=== PATIENT | female | born 1960 | race Caucasian/White ===

== ENCOUNTER 2016-09-11 17:22 | Emergency (ER) | payer SELFPAY ==
[~2016-09-11 17:22] MED LIST: ALBUTEROL SULF8.5 G1 IH; ALBUTEROL0.63 MG/1 IH; ALBUTEROL0.83 MG/ML INH; ALEVE220 M1 PO; ALEVE220 M4 PO; ASPIRIN325 M3 PO; ATIVAN2 M1 PO; BYSTOLIC2.5 M1 PO; CULTURELLE1 CA1 PO; DIAZIDE; DOXYCYCLINE HY100 M3 PO; DYAZIDE 37.5-21 EACH PO; EFFER-K 10 MEQ10 MEQ; FLOVENT HFA12 GM IH; FLUDROCORTISON0.1 M1 PO; GLIPIZIDE PO; GLIPIZIDE10 M1 PO; GLIPIZIDE5 MG PO; GLUCOPHAGE XR500 M1 PO; GLUCOPHAGE500 M3 PO; GLUCOPHAGE500 MG; GLUCOPHAGE500 MG PO; GLUCOTROL10 MG; HYDROCODONE/APA1 TAB; IBUPROFEN200 M2 PO; LANTUS100 U/ML; LEVEMIR100 UNITS/ SC; NORCO 10/325 TA1 TAB PO; NORCO 10/3251 TAB PO; NORCO 5-325 TA1 EACH PO; NORCO 5/325 TAB1 TAB PO; NOVOLOG100 UNITS/ SC; OXYCONTIN10 M2 PO; OXYCONTIN20 M2 PO; OXYCONTIN20 MG; PAXIL20 M1 PO; PAXIL40 MG PO; PEPCID20 MG PO; PHENERGAN25 MG/SUPP RC; POTASSIUM CHLO10 ME2 PO; POTASSIUM2.5 MEQ; PREDNISONE20 M1 PO; PREDNISONE20 MG PO; PREVACID30 MG; PRILOSEC20 M1 PO; PROAIR HFA8.5 GM INH; PROTONIX40 M2 PO; SOTALOL80 M1 PO; SYMBICORT 160-1 PUFF INH; TENORMIN50 M1 PO; THEOPHYLLINE PO; THEOPHYLLINE300 MG PO; TOPAMAX100 MG; TRAMADOL HCL50 M2 PO; TRIAMTERENE-HC1 EAC3 PO; TYLENOL EXTRA500 M1 PO; VIBRAMYCIN100 M1 PO; VIBRAMYCIN100 MG PO; ZANTAC150 M1 PO; ZANTAC150 MG; ZESTRIL2.5 M3 PO; ZITHROMAX250 M1 PO; ZITHROMAX250 MG PO; ZOFRAN ODT4 MG/UDTAB PO; [UNRECOGNIZED DRUG - OTHER] PO; [UNRECOGNIZED DRUG - REMARK]
[2016-09-11 17:56] LABS: URINE BILIRUBIN SMALL (NEG); URINE BLOOD LARGE (NEG); URINE GLUCOSE (UA) NEGATIVE (NEG); URINE KETONE SMALL (NEG); URINE LEUKOCYTE ESTERASE POSITIVE (NEG); URINE NITRITE POSITIVE (NEG); URINE PROTEIN LARGE (NEG)
[2016-09-11 17:58] LABS: URINE APPEARANCE CLOUDY; URINE COLOR BROWN
[2016-09-11] MEDS ORDERED: ALEVE220 M4 PO (18:00)
[2016-09-11] MEDS ORDERED: TYLENOL EXTRA500 M1 PO (18:00)
[2016-09-11] MEDS ORDERED: REQUIP0.5 M1 PO (18:01)
[2016-09-11] MEDS ORDERED: ASPIRIN325 M3 PO (18:01)
[2016-09-11 18:05] LABS: URINE AMORPHOUS 3+; URINE BACTERIA 2+; URINE RBC FULL FIELD /[HPF] (0-5); URINE WBC FULL FIELD /[HPF] (0-5)
[2016-09-11] MEDS ORDERED: PYRIDIUM100 M2 PO (18:21)
[2016-09-11] MEDS ORDERED: MACROBID 100 M100 M1 PO (18:21)
[2016-09-11] MEDS ORDERED: ZOFRAN4 M2 PO (18:21)
== END 2016-09-11 18:24 ==
LOC: EDMED 17:22
PROVIDERS: Emergency Medicine
DX: N39.0 Urinary tract infection, site not specified (principal); E11.9 Type 2 diabetes mellitus without complications; I10 Essential (primary) hypertension; K21.9 Gastro-esophageal reflux disease without esophagitis; Z79.4 Long term (current) use of insulin; Z88.0 Allergy status to penicillin; Z88.1 Allergy status to other antibiotic agents; Z88.2 Allergy status to sulfonamides; Z88.8 Allergy status to other drugs, medicaments and biological substances; F17.210 Nicotine dependence, cigarettes, uncomplicated

== ENCOUNTER 2016-09-20 13:14 | Emergency (ER) | payer SELFPAY ==
[~2016-09-20 13:14] MED LIST changes: +MACROBID 100 M100 M1 PO; +PYRIDIUM100 M2 PO; +REQUIP0.5 M1 PO; +ZOFRAN4 M2 PO
[2016-09-20] MEDS ORDERED: [UNRECOGNIZED DRUG - CODE] PO (14:48)
[2016-09-20] MEDS ORDERED: LISINOPRIL20 M1 PO (14:48)
[2016-09-20] MEDS ORDERED: HUMULIN R100 UNITS/ SC (14:49)
[2016-09-20] MEDS ORDERED: ZOFRAN ODT4 MG PO (15:57)
[2016-09-20] MEDS ORDERED: NORCO 5-325 TA1 EACH PO (15:57)
[2016-09-20] MEDS ORDERED: KEFLEX500 M4 PO (15:57)
== END 2016-09-20 16:17 ==
LOC: EDMED 13:14
DX: R68.84 Jaw pain (principal); E11.9 Type 2 diabetes mellitus without complications; I48.91 Unspecified atrial fibrillation; F17.200 Nicotine dependence, unspecified, uncomplicated

== ENCOUNTER 2016-10-09 23:09 | Observation (INO) | payer SELFPAY ==
[~2016-10-09 23:09] MED LIST changes: +HUMULIN R100 UNITS/ SC; +KEFLEX500 M4 PO; +LISINOPRIL20 M1 PO; +ZOFRAN ODT4 MG PO; +[UNRECOGNIZED DRUG - CODE] PO
[2016-10-10 00:14] LABS: BASO % 0.9 % (0-2); BASO ABSOLUTE COUNT 0.1 tho/cmm (0.0-0.2); EOS % 7.9 % (0-7); EOSINOPHIL ABSOLUTE COUNT 0.7 tho/cmm (0.0-0.7); HCT-HEMATOCRIT 33.3 % (34.0-49.0); HGB-HEMOGLOBIN 10.3 gm/dl (12.0-15.5); IMMATURE GRANULOCYTES ABSOLUTE 0.04 tho/cmm (0-0.03); IMMATURE GRANULOCYTES PERCENT 0.4 % (0-0.3); LYMPH % 13.4 % (20-45); LYMPH ABSOLUTE COUNT 1.2 tho/cmm (0.8-4.5); MCH (MEAN CORPUSCULAR HGB) 22.3 pg (28.0-32.0); MCHC MEAN CORPUSCULAR HGB CONC 30.9 % (32.0-36.0); MCV (MEAN CELL VOLUME) 72.1 fl (82.0-96.0); MEAN PLATELET VOLUME 10.2 cmc (9.4-12.4); MONO % 7.8 % (0-12); MONOCYTE ABSOLUTE COUNT 0.7 tho/cmm (0.0-1.2); NEUTROPHIL ABSOLUTE COUNT 6.2 tho/cmm (1.6-8.0); NEUTROPHIL-AUTOMATED 6.2 tho/cmm (1.6-8.0); NEUTROPHILS % 69.6 % (40-80); PLATELET COUNT 357 tho/cmm (150-450); RED BLOOD COUNT 4.62 mil/cmm (4.00-5.20); RED CELL DISTRIBUTION WIDTH 21.6 % (12.4-16.4)
[2016-10-10 00:34] LABS: ANION GAP 11 mmol/L (0-20); BLOOD UREA NITROGEN 25 mg/dl (6-24); CALCIUM 8.8 mg/dl (8.5-10.5); CARBON DIOXIDE-VENOUS 23 mmol/L (22-32); CHLORIDE 105 mmol/l (96-110); CREATININE 1.02 mg/dl (0.50-1.10); GLUCOSE 298 mg/dL (70-110); POTASSIUM 4.4 mmol/L (3.7-5.1); SODIUM 135 mmol/L (135-145); eGFR VALUE FOR BLACK 71 mL/Min
[2016-10-10] MEDS ORDERED: THEOPHYLLINE A200 M1 PO (13:48)
== END 2016-10-10 14:05 ==
LOC: EDMED 23:09 → EMR2 10-10 01:56 → CAR1 10-10 02:10
PROVIDERS: Emergency Medicine; ADMIT Internal Medicine Clinical Cardiac Electrophysiology
DX: R07.89 Other chest pain (principal); J45.909 Unspecified asthma, uncomplicated; I48.1 Persistent atrial fibrillation; I10 Essential (primary) hypertension; E78.5 Hyperlipidemia, unspecified; E11.649 Type 2 diabetes mellitus with hypoglycemia without coma; F17.210 Nicotine dependence, cigarettes, uncomplicated; Z79.4 Long term (current) use of insulin; Z79.899 Other long term (current) drug therapy
CPT/HCPCS: A9500; G0378; J2785

== ENCOUNTER 2016-10-13 17:51 | Emergency (ER) | payer SELFPAY ==
[~2016-10-13 17:51] MED LIST changes: +THEOPHYLLINE A200 M1 PO
[2016-10-13] MEDS ORDERED: PAXIL CR25 M1 PO (18:14)
[2016-10-13 19:34] LABS: BASO % 0.7 % (0-2); BASO ABSOLUTE COUNT 0.1 tho/cmm (0.0-0.2); EOS % 7.7 % (0-7); EOSINOPHIL ABSOLUTE COUNT 0.8 tho/cmm (0.0-0.7); HCT-HEMATOCRIT 36.1 % (34.0-49.0); HGB-HEMOGLOBIN 11.1 gm/dl (12.0-15.5); IMMATURE GRANULOCYTES ABSOLUTE 0.03 tho/cmm (0-0.03); IMMATURE GRANULOCYTES PERCENT 0.3 % (0-0.3); LYMPH % 27.5 % (20-45); LYMPH ABSOLUTE COUNT 2.7 tho/cmm (0.8-4.5); MCH (MEAN CORPUSCULAR HGB) 22.3 pg (28.0-32.0); MCHC MEAN CORPUSCULAR HGB CONC 30.7 % (32.0-36.0); MCV (MEAN CELL VOLUME) 72.6 fl (82.0-96.0); MEAN PLATELET VOLUME 10.2 cmc (9.4-12.4); MONO % 6.6 % (0-12); MONOCYTE ABSOLUTE COUNT 0.7 tho/cmm (0.0-1.2); NEUTROPHIL ABSOLUTE COUNT 5.7 tho/cmm (1.6-8.0); NEUTROPHIL-AUTOMATED 5.7 tho/cmm (1.6-8.0); NEUTROPHILS % 57.2 % (40-80); RED BLOOD COUNT 4.97 mil/cmm (4.00-5.20); RED CELL DISTRIBUTION WIDTH 21.6 % (12.4-16.4); WHITE BLOOD COUNT 9.9 tho/cmm (4.0-10.0)
[2016-10-13 19:51] LABS: ANION GAP 11 mmol/L (0-20); BLOOD UREA NITROGEN 24 mg/dl (6-24); CALCIUM 8.8 mg/dl (8.5-10.5); CARBON DIOXIDE-VENOUS 23 mmol/L (22-32); CHLORIDE 107 mmol/l (96-110); CREATININE 0.96 mg/dl (0.50-1.10); GLUCOSE 192 mg/dL (70-110); POTASSIUM 4.7 mmol/L (3.7-5.1); SODIUM 136 mmol/L (135-145); eGFR VALUE FOR BLACK 77 mL/Min
[2016-10-13 19:53] LABS: PLATELET COUNT 322 tho/cmm (150-450)
[2016-10-13] MEDS ORDERED: [UNRECOGNIZED DRUG - CODE] PO (20:05)
[2016-10-13] MEDS ORDERED: ZOFRAN4 M2 PO (20:57)
[2016-10-13] MEDS ORDERED: VIBRAMYCIN100 M1 PO (20:57)
== END 2016-10-13 21:10 ==
LOC: EDMED 17:51
PROVIDERS: Emergency Medicine
DX: J18.9 Pneumonia, unspecified organism (principal); J45.901 Unspecified asthma with (acute) exacerbation; I48.91 Unspecified atrial fibrillation; I10 Essential (primary) hypertension; E11.9 Type 2 diabetes mellitus without complications; F31.9 Bipolar disorder, unspecified; F41.9 Anxiety disorder, unspecified; Z79.4 Long term (current) use of insulin; Z79.82 Long term (current) use of aspirin; Z79.899 Other long term (current) drug therapy; F17.210 Nicotine dependence, cigarettes, uncomplicated
CPT/HCPCS: J2930; J7030

== ENCOUNTER 2016-10-19 14:30 | Inpatient (IN) | payer SELFPAY ==
[~2016-10-19 14:30] MED LIST changes: +PAXIL CR25 M1 PO
[2016-10-19] MEDS ORDERED: VIBRAMYCIN100 M1 PO (14:43)
[2016-10-19] MEDS ORDERED: ZOFRAN4 M2 PO (14:43)
[2016-10-19 15:03] LABS: BASO % 0.4 % (0-2); BASO ABSOLUTE COUNT 0.1 tho/cmm (0.0-0.2); EOS % 1.9 % (0-7); EOSINOPHIL ABSOLUTE COUNT 0.3 tho/cmm (0.0-0.7); HCT-HEMATOCRIT 38.3 % (34.0-49.0); IMMATURE GRANULOCYTES PERCENT 0.6 % (0-0.3); LYMPH % 24.7 % (20-45); LYMPH ABSOLUTE COUNT 3.8 tho/cmm (0.8-4.5); MCH (MEAN CORPUSCULAR HGB) 22.5 pg (28.0-32.0); MCHC MEAN CORPUSCULAR HGB CONC 31.3 % (32.0-36.0); MCV (MEAN CELL VOLUME) 71.9 fl (82.0-96.0); MONO % 6.9 % (0-12); MONOCYTE ABSOLUTE COUNT 1.1 tho/cmm (0.0-1.2); NEUTROPHIL ABSOLUTE COUNT 10.1 tho/cmm (1.6-8.0); NEUTROPHIL-AUTOMATED 10.1 tho/cmm (1.6-8.0); NEUTROPHILS % 65.5 % (40-80); PLATELET COUNT 461 tho/cmm (150-450); RED BLOOD COUNT 5.33 mil/cmm (4.00-5.20); RED CELL DISTRIBUTION WIDTH 22.6 % (12.4-16.4); WHITE BLOOD COUNT 15.4 tho/cmm (4.0-10.0)
[2016-10-19 15:26] LABS: ABG CO2 ARTERIAL 17 mmol/L (21-27); ARTERIAL BLD GAS O2 SATURATION 96 % (95-98); ARTERIAL BLOOD GAS PCO2 25 mmHg (32-45); ARTERIAL PO2 80 mmHg (70-100); BICARBONATE 16 mmol/L (21-28); BLOOD GAS BASE EXCESS -7 mM/L (-/+3); PH 7.42 Units (7.35-7.45)
[2016-10-19 15:57] LABS: ALB/GLOB RATIO 0.8 (0.8-2.0); ALBUMIN 3.1 g/dl (3.5-5.0); ALKALINE PHOSPHATASE 125 U/L (33-138); ALT/SGPT 17 U/L (12-78); ANION GAP 17 mmol/L (0-20); AST/SGOT 14 U/L (10-40); BILIRUBIN,TOTAL 0.6 mg/dl (0-1.5); BLOOD UREA NITROGEN 41 mg/dl (6-24); CARBON DIOXIDE-VENOUS 18 mmol/L (22-32); CHLORIDE 105 mmol/l (96-110); CREATININE 1.65 mg/dl (0.50-1.10); GLUCOSE 399 mg/dL (70-110); POTASSIUM 4.1 mmol/L (3.7-5.1); SODIUM 136 mmol/L (135-145); eGFR VALUE FOR BLACK 40 mL/Min
[2016-10-19 16:21] LABS: PROCALCITONIN <0.05 ng/ml (0.05-0.09)
[2016-10-19 16:38] LABS: KETONE-BETA (WHOLE BLOOD) 0.2 mmol/L (0.0-0.6)
[2016-10-19 16:44] LABS: MAGNESIUM 1.5 mg/dl (1.8-2.6)
[2016-10-19 19:34] LABS: URINE APPEARANCE CLEAR; URINE BILIRUBIN NEGATIVE (NEG); URINE BLOOD MODERATE (NEG); URINE COLOR YELLOW; URINE GLUCOSE (UA) MODERATE (NEG); URINE KETONE NEGATIVE (NEG); URINE LEUKOCYTE ESTERASE POSITIVE (NEG); URINE NITRITE NEGATIVE (NEG); URINE PROTEIN SMALL (NEG); URINE SPECIFIC GRAVITY 1.015 (1.003-1.030)
[2016-10-19 19:42] LABS: URINE WBC RARE /[HPF] (0-5)
[2016-10-19 19:43] LABS: URINE AMORPHOUS 1+; URINE EPITHELIAL CELLS 0-2 /[HPF] (0-10)
[2016-10-19 21:23] LABS: PROTHROMBIN TIME 11.3 SECONDS (9.0-13.6)
[2016-10-20 07:01] LABS: ANION GAP 13 mmol/L (0-20); BLOOD UREA NITROGEN 27 mg/dl (6-24); CALCIUM 8.4 mg/dl (8.5-10.5); CARBON DIOXIDE-VENOUS 19 mmol/L (22-32); CHLORIDE 113 mmol/l (96-110); CREATININE 1.09 mg/dl (0.50-1.10); GLUCOSE 213 mg/dL (70-110); SODIUM 140 mmol/L (135-145); eGFR VALUE FOR BLACK 66 mL/Min
[2016-10-20 07:08] LABS: POTASSIUM 4.9 mmol/L (3.7-5.1)
[2016-10-20 10:08] LABS: BASO % 0.2 % (0-2); HGB-HEMOGLOBIN 9.5 gm/dl (12.0-15.5); IMMATURE GRANULOCYTES ABSOLUTE 0.07 tho/cmm (0-0.03); IMMATURE GRANULOCYTES PERCENT 0.6 % (0-0.3); LYMPH % 15.8 % (20-45); MCH (MEAN CORPUSCULAR HGB) 22.6 pg (28.0-32.0); MCHC MEAN CORPUSCULAR HGB CONC 31.7 % (32.0-36.0); MCV (MEAN CELL VOLUME) 71.3 fl (82.0-96.0); MEAN PLATELET VOLUME 10.3 cmc (9.4-12.4); MONO % 8.1 % (0-12); NEUTROPHIL ABSOLUTE COUNT 9.4 tho/cmm (1.6-8.0); NEUTROPHIL-AUTOMATED 9.4 tho/cmm (1.6-8.0); NEUTROPHILS % 75.3 % (40-80); PLATELET COUNT 376 tho/cmm (150-450); RED BLOOD COUNT 4.21 mil/cmm (4.00-5.20); RED CELL DISTRIBUTION WIDTH 22.1 % (12.4-16.4); WHITE BLOOD COUNT 12.5 tho/cmm (4.0-10.0)
[2016-10-21 06:20] LABS: BASO % 0.3 % (0-2); EOS % 0.1 % (0-7); HCT-HEMATOCRIT 32.9 % (34.0-49.0); HGB-HEMOGLOBIN 10.3 gm/dl (12.0-15.5); IMMATURE GRANULOCYTES ABSOLUTE 0.07 tho/cmm (0-0.03); IMMATURE GRANULOCYTES PERCENT 0.6 % (0-0.3); LYMPH % 17.2 % (20-45); MCH (MEAN CORPUSCULAR HGB) 22.5 pg (28.0-32.0); MCHC MEAN CORPUSCULAR HGB CONC 31.3 % (32.0-36.0); MEAN PLATELET VOLUME 10.1 cmc (9.4-12.4); MONO % 3.3 % (0-12); MONOCYTE ABSOLUTE COUNT 0.4 tho/cmm (0.0-1.2); NEUTROPHIL ABSOLUTE COUNT 9.2 tho/cmm (1.6-8.0); NEUTROPHIL-AUTOMATED 9.2 tho/cmm (1.6-8.0); NEUTROPHILS % 78.5 % (40-80); PLATELET COUNT 459 tho/cmm (150-450); RED BLOOD COUNT 4.57 mil/cmm (4.00-5.20); RED CELL DISTRIBUTION WIDTH 22.7 % (12.4-16.4); WHITE BLOOD COUNT 11.8 tho/cmm (4.0-10.0)
[2016-10-21 06:32] LABS: ANION GAP 12 mmol/L (0-20); BLOOD UREA NITROGEN 20 mg/dl (6-24); CALCIUM 8.2 mg/dl (8.5-10.5); CARBON DIOXIDE-VENOUS 22 mmol/L (22-32); CHLORIDE 111 mmol/l (96-110); CREATININE 0.91 mg/dl (0.50-1.10); MAGNESIUM 2.2 mg/dl (1.8-2.6); POTASSIUM 4.3 mmol/L (3.7-5.1); SODIUM 141 mmol/L (135-145); eGFR VALUE FOR BLACK 82 mL/Min
[2016-10-21 06:39] LABS: GLUCOSE 62 mg/dL (70-110)
[2016-10-21] MEDS ORDERED: IPRAT-ALBUT 0.5-3 ML INH (13:58)
[2016-10-21] MEDS ORDERED: DELTASONE20 MG PO ×2 (13:59→14:00)
[2016-10-21] MEDS ORDERED: SYMBICORT 160-1 PUFF INH (14:00)
[2016-10-21] MEDS ORDERED: PREDNISONE10 M1 PO (14:00)
[2016-10-21] MEDS ORDERED: AZITHROMYCIN250 M1 PO (14:01)
[2016-10-21] MEDS ORDERED: AUGMENTIN 875-1 EAC2 PO (14:01)
== END 2016-10-21 15:00 | DRG 202 ==
LOC: EDMED 14:30 → EMR2 17:40 → CCU 20:00
PROVIDERS: Emergency Medicine; Internal Medicine; Nurse Practitioner Acute Care; ADMIT Hospitalist
DX: J45.901 Unspecified asthma with (acute) exacerbation (principal); E87.2 Acidosis; J20.9 Acute bronchitis, unspecified; E11.65 Type 2 diabetes mellitus with hyperglycemia; E86.0 Dehydration; E78.5 Hyperlipidemia, unspecified; I10 Essential (primary) hypertension; Z91.19 Patient's noncompliance with other medical treatment and regimen; F17.210 Nicotine dependence, cigarettes, uncomplicated; G56.00 Carpal tunnel syndrome, unspecified upper limb; Z98.1 Arthrodesis status; Z79.82 Long term (current) use of aspirin; Z79.02 Long term (current) use of antithrombotics/antiplatelets; Z79.4 Long term (current) use of insulin; R19.7 Diarrhea, unspecified; B34.8 Other viral infections of unspecified site
CPT/HCPCS: J0456; J0696; J1650; J1815; J2930; J3475; J7030; J7050; J7512